=== PATIENT | male | born 1945 | race Caucasian/White ===

== ENCOUNTER 2018-08-19 10:57 | Emergency (ER) | payer OTHER ==
[2018-08-19 11:51] VITALS: BP 125/80; PULSE 51; TEMP 98; BMI 27.4
[2018-08-19] MEDS ORDERED: CYCLOBENZAPRINE HCL 10 MG TABLET (FP) PO ONE (12:06)
[2018-08-19] MEDS ORDERED: IBUPROFEN 600 MG TABLET (FP) PO ONE ×2 (12:07→12:16)
[2018-08-19] MEDS ORDERED: CYCLOBENZAPRINE HCL 10 MG TABLET (FP) ONE (12:16)
--- NOTE | 2018-08-19 13:03 | PDOC ---
History of Present Illness - General Chief Complaint: Pain Stated Complaint: KNEE PAIN Time Seen by Provider: 08/19/18 11:58 History Source: Patient Exam Limitations: No Limitations - History of Present Illness Initial Comments: 08/19/18 13:04 72-year-old male with recent right knee replacement approximately 2 months ago presents to ED with complaints of right lower back pain. Patient states while in physical therapy this week he was doing exercises requiring him to push objects while standing and now has right lower back pain. Patient states intermittent sharp pain down the back of his leg causing him difficulty ambulating. Patient denies abdominal pain, nausea, weakness of the right lower extremity, swelling, skin discoloration. Patient denies history of back pain. Patient also denies saddle anesthesia or incontinence complaint Occurred: reports: yesterday Severity: reports: mild, moderate Pain Location: reports: back Method of Injury: Yes: unknown Modifying Factors: improves with: None Loss of Consciousness: no loss of consciousness Associated Symptoms (Fall): trouble walking Past History - Travel Traveled outside of the country in the last 30 days: No Close contact w/someone who was outside of country & ill: No - Past Medical History Allergies/Adverse Reactions: Allergies Allergy/AdvReac Type Severity Reaction Status Date / Time No Known Allergies Allergy Verified 08/19/18 11:50 Home Medications: Ambulatory Orders Oxycodone HCl/Acetaminophen [Oxycodone-Acetaminophen 5-325] 1 each PO Q6H PRN COPD: No - Suicide/Smoking/Psychosocial Hx Smoking History: Never smoked Have you smoked in the past 12 months: No Information on smoking cessation initiated: No Hx Alcohol Use: No Drug/Substance Use Hx: No Patient Lives Alone: No Lives with/in: daughter Trauma Specific PMHX - Complaint Specific PMHX Back Injury: Yes Review of Systems - Review of Systems Able to Perform ROS?: Yes Constitutional: No: Symptoms Reported HEENTM: No: Symptoms Reported Respiratory: No: Symptoms reported Cardiac (ROS): No: Symptoms Reported ABD/GI: No: Symptoms Reported : No: Symptoms Reported Musculoskeletal: Yes: Back Pain, Joint Pain (rt knee) Integumentary: No: Symptoms Reported Neurological: No: Symptoms reported Endocrine: No: Symptoms Reported Hematologic/Lymphatic: No: Symptoms Reported *Physical Exam - Vital Signs Last Vital Signs Temp Pulse Resp BP Pulse Ox 98.0 F 51 L 18 125/80 98 08/19/18 11:45 08/19/18 11:45 08/19/18 11:45 08/19/18 11:45 08/19/18 11:45 - Physical Exam General Appearance: Yes: Nourished, Appropriately Dressed. No: Apparent Distress HEENT: negative: Pale Conjunctivae Neck: positive: Supple. negative: Tender, Decreased range of motion Respiratory/Chest: positive: Lungs Clear, Normal Breath Sounds. negative: Respiratory Distress, Accessory Muscle Use Cardiovascular: positive: Regular Rhythm, Bradycardia. negative: Murmur Musculoskeletal: positive: Other (bilateral paraspinous tendernessat L3-L5 level ). negative: Vertebral Tenderness Extremity: positive: Normal Inspection Integumentary: positive: Normal Color, Warm, Moist, Other (healed right knee incision) Neurologic: positive: Motor Strength /5 ED Treatment Course - RADIOLOGY Radiology Studies Ordered: Category Date Time Status SPINE-LUMBAR ONLY [RAD] Stat Radiology 08/19/18 12:06 Ordered - Medications Given in the ED: ED Medications Discontinued Medications Generic Name Dose Route Start Last Admin Trade Name Freq PRN Reason Stop Dose Admin Cyclobenzaprine HCl 5 mg 08/19/18 12:06 08/19/18 12:24 Flexeril - PO 08/19/18 12:07 5 mg ONCE ONE Administration Ibuprofen 600 mg 08/19/18 12:07 08/19/18 12:25 Motrin - PO 08/19/18 12:08 600 mg ONCE ONE Administration Medical Decision Making - Medical Decision Making 08/19/18 13:14 Right back pain since physical therapy on Thursday.. Patient states unable to injury secondary to pain. Exam. Patient with right paraspinous tenderness no central vertebral tenderness. Patient no CVA tenderness or right lower extremity swelling discoloration or edema. Plan: Flexeril, Motrin and lumbar x-ray ordered 08/19/18 15:53 Lumbar x-ray negative for acute pathology. Patient able to transfer to wheelchair without difficulty and ambulate with small steps. Patient will be discharged home with the same medication (Motrin/Flexeril) *DC/Admit/Observation/Transfer Diagnosis at time of Disposition: Low back pain - Discharge Dispostion Disposition: HOME Condition at time of disposition: Improved - Referrals Referrals: Maddison Manzano [Primary Care Provider] - - Patient Instructions Printed Discharge Instructions: DI for Low Back Pain Additional Instructions: Please take medication as prescribed. Avoid with movements that triggered discomfort. - Post Discharge Activity
== END 2018-08-19 16:03 | disposition home or self-care (01) ==
LOC: JER 10:57
DX: M54.5 Low back pain (principal); M25.561 Pain in right knee; Z96.651 Presence of right artificial knee joint
CPT/HCPCS: 72100-TC-FY; 99282-25

== ENCOUNTER 2023-02-12 02:47 | Emergency (ER) | payer OTHER ==
[2023-02-12 03:03] VITALS: PULSE 63; RESP 18; BMI 27.1
[2023-02-12] MEDS ORDERED: SODIUM CHLORIDE 1,000 ML IV STA (04:41)
[2023-02-12] MEDS ORDERED: FAMOTIDINE 20 MG/50 ML IVPB 20 MG/50 ML MG IVPB ONE ×2 (04:41→05:08)
[2023-02-12] MEDS ORDERED: ACETAMINOPHEN 1000 MG/100 ML BAG IVPB ONE (04:43)
[2023-02-12] MEDS ORDERED: MAG HYDROX/AL HYDROX/SIMETH -MYLANTA- ORAL SUSPENSION PO ONE (04:43)
[2023-02-12] MEDS ORDERED: MAG HYDROX/AL HYDROX/SIMETH 30 ML UNIT-DOSE CUP ONE (05:08)
[2023-02-12] MEDS ORDERED: ACETAMINOPHEN INJECTION 100 ML IVPB ONE (05:08)
[2023-02-12 05:38] LABS: BASO % 0.9 % (0-2.0); EOS % 1.1 % (0-4.5); HEMATOCRIT 42.2 % (35.4-49); HEMOGLOBIN 14.7 GM/dL (11.7-16.9); LYMPH % 35.5 % (8-40); MCH 33.4 pg (25.7-33.7); MCHC 34.9 g/dl (32.0-35.9); MEAN CELL VOLUME 95.8 fl (80-96); MEAN PLT VOLUME 7.3 fl (7.5-11.1); MONO % 8.7 % (3.8-10.2); NEUT % 53.8 % (42.8-82.8); PLATELET COUNT 165 10^3/uL (134-434); RBC 4.41 M/mm3 (4.00-5.60); RDW 13.4 % (11.9-15.9); WHITE BLOOD COUNT 5.6 K/mm3 (4.0-10.0)
[2023-02-12 06:00] LABS: ALBUMIN 3.6 g/dl (3.4-5.0); CALCIUM 8.5 mg/dL (8.5-10.1)
[2023-02-12 06:01] LABS: BLOOD UREA NITROGEN 15.4 mg/dL (7-18)
[2023-02-12 06:05] LABS: BILIRUBIN,TOTAL 1.4 mg/dL (0.2-1)
[2023-02-12 08:03] VITALS: BP 134/57; TEMP 98.2
== END 2023-02-12 11:55 | disposition home or self-care (01) ==
LOC: JER 02:47
PROC: 3E033GC Introduction of Other Therapeutic Substance into Peripheral Vein, Percutaneous Approach (ICD-10-PCS; principal; 2023-02-12)
PROC: 3E033NZ Introduction of Analgesics, Hypnotics, Sedatives into Peripheral Vein, Percutaneous Approach (ICD-10-PCS; 2023-02-12)
PROC: 3E0337Z Introduction of Electrolytic and Water Balance Substance into Peripheral Vein, Percutaneous Approach (ICD-10-PCS; 2023-02-12)
DX: R10.11 Right upper quadrant pain (principal); R63.0 Anorexia; K59.00 Constipation, unspecified
CPT/HCPCS: 36415; 74177-TC; 76705-TC; 80053; 83605; 83690; 84484; 85025; 86850; 86900; 86901; 93005; 93010; 96361; 96365; 96375; 99285-25

== ENCOUNTER 2023-04-07 04:13 | Day surgery (SDC) | payer OTHER ==
[2023-04-01 14:31] VITALS: BMI 27.6
[2023-04-07 07:26] VITALS: TEMP 97.8
[2023-04-07 09:10] VITALS: PULSE 56; RESP 18
[2023-04-07 09:11] VITALS: BP 112/62
== END 2023-04-07 09:21 | disposition home or self-care (01) ==
LOC: JASU-ENDO 04:13
PROVIDERS: ATTEND Internal Medicine Gastroenterology
PROC: 0DB68ZX Excision of Stomach, Via Natural or Artificial Opening Endoscopic, Diagnostic (ICD-10-PCS; 2023-04-07)
PROC: 0DB98ZX Excision of Duodenum, Via Natural or Artificial Opening Endoscopic, Diagnostic (ICD-10-PCS; principal; 2023-04-07 08:00)
DX: K29.50 Unspecified chronic gastritis without bleeding (principal); K31.7 Polyp of stomach and duodenum
CPT/HCPCS: 88305-TC; 88342-TC